=== PATIENT | female | born 2005 | race Caucasian/White ===

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

== ENCOUNTER 2024-07-13 11:15 | Emergency (ER) | payer OTHER, MEDICAID | END 2024-07-13 12:20 | disposition home or self-care (01) | LOC: JP.ED 11:15 | DX: L50.9 Urticaria, unspecified (principal); Z86.16 Personal history of COVID-19; Z88.8 Allergy status to other drugs, medicaments and biological substances | CPT/HCPCS: 99282 ==